=== PATIENT | male | born 1955 ===

== ENCOUNTER 2018-02-07 08:41 | Emergency (ER) | payer SELFPAY ==
[2018-02-07] MEDS ORDERED: Al Hydrox/Mg Hydrox/Simet LIQ* 30 ML UDC PO ONE (09:11)
[2018-02-07] MEDS ORDERED: Lidocaine 2% VISCOUS* 15 ML UDC PO ONE (09:11)
--- NOTE | 2018-02-07 09:12 | UC ---
Abdominal Pain Male HPI - HPI Summary HPI Summary: 62-year-old male comes in to clinic today complaining of sudden onset of severe right upper quadrant abdominal pain starting at 5 AM this morning. He's vomited several times she's also had diarrhea. His appendix is GONE. He still has his gallbladder. He has a history of kidney stones and he says this does not feel like a kidney stone. He's had a partial small bowel obstruction the past and says it does not feel as partial small bowel obstruction. No fever. The pain at its worse is 8 out of 10 right now to about a 7 out of 10. He can' t find anything that makes the pain better. - History of Current Complaint Chief Complaint: UCAbdominalPain Stated Complaint: ABD PAIN Time Seen by Provider: 02/07/18 09:04 Pain Intensity: 8 - Allergies/Home Medications Allergies/Adverse Reactions: Allergies Allergy/AdvReac Type Severity Reaction Status Date / Time No Known Allergies Allergy Verified 02/07/18 08:59 Home Medications: Home Medications Losartan TAB* [Cozaar TAB*] 100 mg PO DAILY 02/07/18 [History Confirmed 02/07/18 ] PMH/Surg Hx/FS Hx/Imm Hx Cardiovascular History: Hypertension GI/ History: Kidney Stones - Surgical History Surgical History: Yes Surgery Procedure, Year, and Place: appendectomy - Social History Alcohol Use: Occasionally Alcohol Amount: almost mamadou Substance Use Type: None Smoking Status (MU): Former Smoker When Did the Patient Quit Smoking/Using Tobacco: 14 yrs ago Review of Systems Constitutional: Negative Skin: Negative Eyes: Negative ENT: Negative Respiratory: Negative Cardiovascular: Negative Gastrointestinal: Abdominal Pain, Vomiting, Diarrhea, Nausea Genitourinary: Negative Motor: Negative Neurovascular: Negative Musculoskeletal: Negative Neurological: Negative Psychological: Negative Is Patient Immunocompromised?: No All Other Systems Reviewed And Are Negative: Yes Physical Exam Triage Information Reviewed: Yes Appearance: Well-Nourished, Pain Distress - MODERATE/SEVERE Vital Signs: Initial Vital Signs Temp 96.1 F 02/07/18 08:49 Pulse 60 02/07/18 08:49 Resp 16 02/07/18 08:49 BP 159/82 02/07/18 08:49 Pulse Ox 97 02/07/18 08:49 Vital Signs Reviewed: Yes Eye Exam: Normal Neck exam: Normal Neck: Positive: Supple Respiratory: Positive: Lungs clear, Normal breath sounds, No respiratory distress Cardiovascular: Positive: RRR Abdomen Description: Positive: Other: - Patient's tender in the right upper quadrant. I do not hear any bowel sounds. There is no right flank tenderness to percussion. Bowel Sounds: Positive: Absent Musculoskeletal Exam: Normal Musculoskeletal: Positive: Strength Intact, ROM Intact Neurological Exam: Normal Neurological: Positive: Alert Psychological: Positive: Other: - ANXIOUS Skin Exam: Normal Abd Pain Male Course/Dx - Course Course Of Treatment: Recommended that the patient go to the emergency department to be evaluated either by ambulance or POV based on his preference. The patient declined. He preferred to be treated here in clinic and if he did not get better he would go to the emergency department. Here he was given Maalox and viscous lidocaine by mouth. The pain eventually went away. The urine did have some blood and I discussed this with the patient. The differential diagnosis of his abdominal pain includes kidney stone her gallbladder attack or partial bowel obstruction. There are also other possible causes. In the clinic the patient's pain went away and he was able to tolerate water and ambulate in the clinic. The patient's plan is to follow up with his doctor. He lives in [place]. If the pain gets worse he knows to go to the nearest emergency department. - Differential Dx/Clinical Impression Provider Diagnoses: ABDOMINAL PAIN. HEMATURIA Discharge - Sign-Out/Discharge Documenting (check all that apply): Patient Departure All imaging exams completed and their final reports reviewed: No Studies - Discharge Plan Condition: Stable Disposition: HOME Patient Education Materials: Acute Abdominal Pain (ED), Hematuria (ED) Referrals: [facility] REFERRAL [Outside] Additional Instructions: FOLLOW UP WITH YOUR DOCTOR. GO TO THE EMERGENCY DEPARTMENT FOR ANY WORSENING OF YOUR CONDITION; PAIN, FEVER , YOU FEEL ILL OR QUESTIONS OR CONCERNS. - Billing Disposition and Condition Condition: STABLE Disposition: Home
== END 2018-02-07 12:00 | disposition home or self-care (01) ==
LOC: UCEAST 08:41
DX: R10.11 Right upper quadrant pain (principal); R19.7 Diarrhea, unspecified; R31.9 Hematuria, unspecified; R11.10 Vomiting, unspecified; I10 Essential (primary) hypertension; Z87.442 Personal history of urinary calculi; Z90.49 Acquired absence of other specified parts of digestive tract; Z87.891 Personal history of nicotine dependence; Z79.899 Other long term (current) drug therapy
CPT/HCPCS: 81003; 99202; A9270-GY; G0463